=== PATIENT | female | born 1990 | race Hispanic/Latino ===

== ENCOUNTER 2018-03-07 22:40 | Emergency (ER) | payer OTHER ==
[~2018-03-07] VITALS: Ht 154.9 cm; Wt 74.8 kg
== END 2018-03-07 23:43 | disposition home or self-care (01) ==
LOC: FSED 22:40
DX: H92.03 Otalgia, bilateral (principal); J30.2 Other seasonal allergic rhinitis; J45.20 Mild intermittent asthma, uncomplicated
CPT/HCPCS: 99283